=== PATIENT | female | born 1960 | race Hispanic/Latino ===

== ENCOUNTER 2018-12-12 03:17 | Emergency (ER) | payer SELFPAY ==
[2018-12-12] MEDS ORDERED: DECADRON IV ONE (05:39)
[2018-12-12] MEDS ORDERED: ULTRAM PO ONE (05:39)
--- NOTE | 2018-12-12 05:44 | Emergency Department Report ---
ED Lower Extremity HPI - General Chief Complaint: Extremity Injury, Lower Stated Complaint: LEFT KNEE PAIN Time Seen by Provider: 12/12/18 05:39 Source: patient Mode of arrival: Wheelchair Limitations: No Limitations, Physical Limitation - History of Present Illness Initial Comments: Patient is a 58-year-old white female with history of diabetes and Arthralgia who presents for left knee pain acute on chronic for the past 2 days patient states her medication has been taken Aleve odja-ild-zevircz patient metformin to control diabetes blood sugar today is 127 milligrams a deciliter patient remains ambulatory however states knee pain is worsening request referral to orthopedic surgery patient denies fall injury or trauma is no fever no chills no deformity MD Complaint: other (knee pain ) Onset/Timin -: days(s) Injury: Knee: Left Type of Injury: other (arthralgia ) Place: home Severity: moderate Severity scale (0 -10): 5 Improves With: nothing Worsens With: weight bearing, movement, palpation Context: other (osteoarthritis) Associated Symptoms: swelling, able to partially bear weight - Related Data Previous Rx's Medication Instructions Recorded Last Taken Type Diclofenac EC [Voltaren] 25 mg PO Q8HR PRN #30 tablet 12/12/18 Unknown Rx Menthol/Camphor [[place] 1 applicatio TP QID PRN #1 tube 12/12/18 Unknown Rx Ointment] predniSONE [Deltasone] 40 mg PO QDAY 5 Days #10 tab 12/12/18 Unknown Rx Allergies Allergy/AdvReac Type Severity Reaction Status Date / Time No Known Allergies Allergy Unverified 12/12/18 06:11 ED Review of Systems ROS: Stated complaint: LEFT KNEE PAIN Other details as noted in HPI Constitutional: denies: chills, fever Eyes: denies: eye pain, eye discharge, vision change ENT: denies: ear pain, throat pain Respiratory: denies: cough, shortness of breath, wheezing Cardiovascular: denies: chest pain, palpitations Endocrine: no symptoms reported Gastrointestinal: denies: abdominal pain, nausea, diarrhea Genitourinary: denies: urgency, dysuria, discharge Musculoskeletal: as per HPI, arthralgia, other (knee pain ) Skin: denies: rash, lesions Neurological: as per HPI Psychiatric: denies: anxiety, depression Hematological/Lymphatic: denies: easy bleeding, easy bruising ED Past Medical Hx - Past Medical History Previous Medical History?: Yes Hx Diabetes: Yes Hx Arthritis: Yes - Surgical History Past Surgical History?: Yes Additional Surgical History: tubaligation right knee., lumpectomy, X2 - Social History Smoking Status: Never Smoker - Medications Home Medications: Home Medications Medication Instructions Recorded Confirmed Last Taken Type Diclofenac EC [Voltaren] 25 mg PO Q8HR PRN #30 tablet 12/12/18 Unknown Rx Menthol/Camphor [[place] 1 applicatio TP QID PRN #1 tube 12/12/18 Unknown Rx Ointment] predniSONE [Deltasone] 40 mg PO QDAY 5 Days #10 tab 12/12/18 Unknown Rx ED Physical Exam - General Limitations: No Limitations, Physical Limitation General appearance: alert, in no apparent distress - Head Head exam: Present: atraumatic, normocephalic - Eye Eye exam: Present: normal appearance, PERRL, EOMI Pupils: Present: normal accommodation - ENT ENT exam: Present: normal exam - Neck Neck exam: Present: normal inspection, full ROM. Absent: tenderness - Respiratory Respiratory exam: Present: normal lung sounds bilaterally. Absent: respiratory distress, wheezes, stridor, chest wall tenderness - Cardiovascular Cardiovascular Exam: Present: regular rate, normal rhythm, normal heart sounds. Absent: systolic murmur, diastolic murmur, rubs, gallop - GI/Abdominal GI/Abdominal exam: Present: soft, normal bowel sounds. Absent: bruit, hernia - Rectal Rectal exam: Present: deferred - Extremities Exam Extremities exam: Present: normal inspection, full ROM, tenderness (left knee pain ), normal capillary refill. Absent: pedal edema, joint swelling, calf tenderness - Expanded Lower Extremity Exam Left Knee exam: Present: full ROM, tenderness, pain w/ pronation/supination, full knee extension. Absent: swelling, abrasion, laceration, ecchymosis, deformity, crepidus, dislocation, erythema, effusion, posterior draw sign, pain/laxity with valgus, pain/laxity with varus Lower Leg exam: Present: full ROM. Absent: tenderness, swelling Ankle exam: Present: full ROM. Absent: tenderness, swelling Foot/Toe exam: Present: normal inspection, full ROM. Absent: tenderness, swelling Neuro vascular tendon exam: Present: no vascular compromise. Absent: pulse deficit, motor deficit, sensory deficit, tendon deficit Gait: Positive: observed and normal - Back Exam Back exam: Present: normal inspection, full ROM. Absent: CVA tenderness (R), CVA tenderness (L), muscle spasm, rash noted - Neurological Exam Neurological exam: Present: alert, oriented X3, CN II-XII intact, normal gait, reflexes normal. Absent: motor sensory deficit - Psychiatric Psychiatric exam: Present: normal affect, normal mood - Skin Skin exam: Present: warm, dry, intact, normal color. Absent: rash ED Course Vital Signs 12/12/18 06:11 Respiratory 20 Rate ED Lower Extremity MDM - Radiology Data Radiology results: image reviewed no fracture no soft tissue abnormality moderate arthritic changes - Medical Decision Making X-ray no fracture no soft tissue abnormality moderate arthritic changes plan diclofenac methocarbamol analgesic balm will provide referral to orthopedic surgery as requested metformin as requested, pt advise knee pain is improved to 2/10 pt verbalizes agreement and understanding of discharge plan. pt dc to home in stable condition at this time pt is ambulatory with steady gait. Critical care attestation.: If time is entered above; I have spent that time in minutes in the direct care of this critically ill patient, excluding procedure time. ED Disposition Clinical Impression: Chronic pain of left knee Knee pain Qualifiers: Chronicity: acute Laterality: left Qualified Code(s): M25.562 - Pain in left knee Arthralgia Qualifiers: Joint pain location: knee Laterality: left Qualified Code(s): M25.562 - Pain in left knee Disposition: DC-01 TO HOME OR SELFCARE Is pt being admited?: No Does the pt Need Aspirin: No Condition: Stable Instructions: Arthralgia (ED), Knee Pain (ED), Knee Exercises (GEN) Prescriptions: predniSONE [Deltasone] 40 mg PO QDAY 5 Days #10 tab Menthol/Camphor [[place] Ointment] 1 applicatio TP QID PRN #1 tube PRN Reason: pain Diclofenac EC [Voltaren] 25 mg PO Q8HR PRN #30 tablet PRN Reason: pain Forms: Work/School Release Form(ED) Time of Disposition: 06:32
--- NOTE | 2018-12-12 07:21 | XRay Report ---
EXAM: XR KNEE 3V LT HISTORY: knee pain TECHNIQUE: 3 views COMPARISON: None available. FINDINGS: There is no acute bony fracture, or joint subluxation or dislocation seen. No focal bone sclerosis i s seen. There cortical changes in the central knee involving the central margins of the femoral condyles and intertubercular sulci of the tibial plateau, which may reflect inflammatory change in the region; rul e out inflammatory arthritis. Consider follow-up evaluation with MRI to assess ACL and PCL integrity as clinically warranted. There is osteoarthritis of the patellofemoral joint and medial joint compartment, marked by joint spa ce narrowing and marginal osteophytosis (especially the patellofemoral joint) cyst. There is a mild s uprapatellar soft tissue density reminiscent of a small joint effusion seen. No radiodense soft tissu e abnormality or foreign body is seen. IMPRESSION: 1. No acute bony fracture, or joint subluxation or dislocation seen. 2. Cortical erosive changes in the central knee involving the central margins of the femoral condyle s and intertubercular sulci of the tibial plateau, which may reflect inflammatory change in the regio n; rule out inflammatory arthritis. Consider follow-up evaluation with MRI to assess ACL and PCL inte grity as clinically warranted. 3. Osteoarthritis of the patellofemoral joint and medial joint compartment, marked by joint space na rrowing and marginal osteophytosis (especially the patellofemoral joint) cyst. 4. Mild suprapatellar soft tissue density reminiscent of a small joint effusion seen. This document is electronically signed by Ashanti Mcnair MD., December 12 2018 07:18:52 AM ET
== END 2018-12-12 11:06 | disposition home or self-care (01) ==
LOC: ED 03:17
DX: M25.562 Pain in left knee (principal); G89.29 Other chronic pain; E11.9 Type 2 diabetes mellitus without complications; Z79.899 Other long term (current) drug therapy; Z98.51 Tubal ligation status
CPT/HCPCS: 73562; 96374; 99284; J1100